=== PATIENT | male | born 1935 | race Two or more races ===

== ENCOUNTER 2021-02-28 09:25 | Emergency (ER) | payer OTHER ==
[~2021-02-28] VITALS: Ht 167.6 cm; Wt 49.9 kg
--- NOTE | 2021-02-28 09:39 | NUR ---
THE PATIENT IS IN ER FOR C/O LOWER BACK PAIN X 10 DAYS. THE PATIENT RATES PAIN 5/10. THE PATIENT DENIES SOB. RESPIRATION REGULAR AND UNLABORED. WILL CONTINUE TO MONITOR THE PATIENT.
--- NOTE | 2021-02-28 09:41 | NUR ---
DR MELVIN AT THE BEDSIDE.
[2021-02-28] MEDS: IBUPROFEN 400 MG TABLET PO ONE (09:46)
[2021-02-28] MEDS: CYCLOBENZAPRINE 10 MG TABLET PO ONE (09:46)
[2021-02-28] MEDS: DEXAMETHASONE 1 MG TABLET PO ONE (09:46)
[2021-02-28] MEDS: HYDROCODONE/APAP 5/325MG TABLET PO ONE (09:46)
[2021-02-28] MEDS ORDERED: IBUPROFEN 400 MG TABLET ONE (09:48)
[2021-02-28] MEDS ORDERED: DEXAMETHASONE 4 MG TABLET ONE (09:48)
[2021-02-28] MEDS ORDERED: CYCLOBENZAPRINE 10 MG TABLET ONE (09:48)
[2021-02-28] MEDS ORDERED: HYDROCODONE/APAP 5/325MG TABLET ONE (09:48)
--- NOTE | 2021-02-28 10:00 | NUR ---
THE PATIENT IS TAKEN TO THE RADIOLOGY DEPARTMENT.
--- NOTE | 2021-02-28 10:30 | NUR ---
THE PATIENT IS BACK FROM RADIOLOGY DEPARTMENT.
[2021-02-28] MEDS ORDERED: IBUP800T54 PO (11:17)
[2021-02-28] MEDS ORDERED: CYCL5TAB PO (11:17)
--- NOTE | 2021-02-28 11:57 | NUR ---
Patient discharged to home in stable condition. Written and verbal after care instructions given. Patient verbalizes understanding of instruction. The patient left ER in stable condition.
[2021-02-28 11:58] VITALS: BP 133/78
== END 2021-02-28 11:58 | disposition home or self-care (01) ==
LOC: ER 09:31
DX: S22.088A Other fracture of T11-T12 vertebra, initial encounter for closed fracture (principal); S39.012A Strain of muscle, fascia and tendon of lower back, initial encounter; Z79.899 Other long term (current) drug therapy; X58.XXXA Exposure to other specified factors, initial encounter; Y93.89 Activity, other specified; Y92.89 Other specified places as the place of occurrence of the external cause; Y99.8 Other external cause status
CPT/HCPCS: 72131; 99284; J8540

== ENCOUNTER 2021-03-10 14:41 | Emergency (ER) | payer OTHER ==
[~2021-03-10] VITALS: Ht 165.1 cm; Wt 48.5 kg
[~2021-03-10 14:41] MED LIST: CYCL5TAB PO; IBUP800T54 PO
[2021-03-10] MEDS ORDERED: ACETAMINOPHEN 325 MG TABLET ONE (15:04)
[2021-03-10] MEDS: ACETAMINOPHEN 325 MG TABLET PO ONE ×2 (15:05→15:21)
--- NOTE | 2021-03-10 15:05 | NUR ---
PT IS WHEELED TO CT SCAN VIA [facility].
[2021-03-10] MEDS: LIDOCAINE 5% (PATCH) 1 EA PATCH TP SCH ×2 (15:41→15:51)
[2021-03-10] MEDS ORDERED: LIDO700A30 TP (15:59)
[2021-03-10 16:07] VITALS: BP 125/72
--- NOTE | 2021-03-10 16:07 | NUR ---
Ambulatory- gait steady Patient discharged to home in stable condition. Written and verbal after care instructions given. Patient verbalizes understanding of instruction.
== END 2021-03-10 16:10 | disposition home or self-care (01) ==
LOC: ER 14:49
DX: M25.551 Pain in right hip (principal); M54.5 Low back pain; Z79.899 Other long term (current) drug therapy; W19.XXXA Unspecified fall, initial encounter; Y93.01 Activity, walking, marching and hiking; Y92.89 Other specified places as the place of occurrence of the external cause; Y99.8 Other external cause status
CPT/HCPCS: 72131-TC; 72192-TC